=== PATIENT | male | born 1975 | race Caucasian/White ===

== ENCOUNTER 2018-01-10 22:47 | Emergency (ER) | payer BC ==
[~2018-01-10] VITALS: Ht 185.4 cm; Wt 95.3 kg
[~2018-01-10 22:47] MED LIST: BUTALB-APAP-CA1 EACH PO; CLONAZEPAM0.5 MG PO; FISH OIL 1,001000 M2 PO; GRALISE600 MG PO; HYDROCODONE-AP1 EAC6 PO; IBUPROFEN 800800 M1 PO; KLOR-CON 1010 MEQ PO; ONDANSETRON HCL4 M2 PO; PROPRANOLOL 4040 M1 PO; RELPAX40 MG PO; SLOW-MAG64 M1 PO; STOOL SOFTENER100 MG PO; TENORMIN25 MG PO; TRAMADOL 50 MG50 MG PO; TRAZODONE HCL50 MG PO; UNICOMPLEX M TA1 TA1 PO; VITAMIN B COMP1 EACH PO; ZANAFLEX4 MG PO
== END 2018-01-11 01:10 | disposition home or self-care (01) ==
LOC: ER 22:47
DX: R51 Headache (principal); F17.210 Nicotine dependence, cigarettes, uncomplicated; Z88.8 Allergy status to other drugs, medicaments and biological substances

== ENCOUNTER 2020-06-24 00:34 | Emergency (ER) | payer OTHER ==
[~2020-06-24] VITALS: Ht 185.4 cm; Wt 104.3 kg
[2020-06-24 00:35] VITALS: BP 143/92
[2020-06-24] MEDS ORDERED: UBRELVY100 MG PO (00:42)
[2020-06-24] MEDS ORDERED: AIMOVIG AU140 MG/1 M SUBQ (00:43)
[2020-06-24] MEDS ORDERED: LIPITOR 20 MG T20 M1 PO (00:45)
[2020-06-24] MEDS ORDERED: NAPROSYN500 MG PO (01:30)
[2020-06-24] MEDS ORDERED: TRAMADOL 50 MG50 MG PO (01:30)
== END 2020-06-24 01:33 | disposition home or self-care (01) ==
LOC: ER 00:34
DX: S93.601A Unspecified sprain of right foot, initial encounter (principal); I10 Essential (primary) hypertension; E78.5 Hyperlipidemia, unspecified; F17.210 Nicotine dependence, cigarettes, uncomplicated; Z79.899 Other long term (current) drug therapy; W10.9XXA Fall (on) (from) unspecified stairs and steps, initial encounter; Y93.89 Activity, other specified; Y92.89 Other specified places as the place of occurrence of the external cause; Y99.8 Other external cause status